=== PATIENT | male | born 1985 | race Caucasian/White ===

== ENCOUNTER → 2017-04-09 | Outpatient (REF) ==
[~2017-04-09] MED LIST: AMIT-106 PO; CLON-298 PO; CLON0.125 PO; LOR5/325 PO; ONDA4TAB PO
== END ==
LOC: AUD 10:00
PROVIDERS: ATTEND Physician Assistant
DX: Z01.10 Encounter for examination of ears and hearing without abnormal findings (principal)
CPT/HCPCS: 92552

== ENCOUNTER → 2018-05-05 | Outpatient (REF) ==
[~2018-05-05] MED LIST changes: -CLON-298 PO; +CLON-331 PO
== END ==
LOC: AUD 09:15
PROVIDERS: ATTEND Physician Assistant
DX: Z01.12 Encounter for hearing conservation and treatment (principal)
CPT/HCPCS: 92552

== ENCOUNTER 2018-06-24 16:01 | Emergency (ER) | payer BC ==
[2018-06-24] MEDS ORDERED: ELUX100T (16:15)
[2018-06-24] MEDS ORDERED: BUPR-474 PO (16:15)
[2018-06-24] MEDS ORDERED: QUET100T29 PO (16:15)
[2018-06-24] MEDS ORDERED: SERT-181 PO (16:16)
--- NOTE | 2018-06-24 16:21 | ER Report ---
History and Physical Time Seen By MD: 16:21 Hx. of Stated Complaint: left sided back pain that started around 7am, pain began to radiate to hip/ abdomen. pt had one episode of emesis. HPI/ROS CHIEF COMPLAINT: Flank pain HISTORY OF PRESENT ILLNESS: This is a 33-year-old male who presents to emergency department for left flank pain. Patient states that this morning around 7:30 he developed some left flank pain, continued throughout the day, has localized into the left lower quadrant. States he's had some slight difficulty urinating, no painful urination. No blood. No bowel movement today. He's had some nausea no vo miting. Denies injuries. Denies testicular pain. No chest pain or shortness breath. No rashes. REVIEW OF SYSTEMS: Constitutional: No fever, no chills. Eyes: No discharge. ENT: No sore throat. Cardiovascular: No chest pain, no palpitations. Respiratory: No cough, no shortness of breath. Gastrointestinal: As above. Genitourinary: No hematuria. Musculoskeletal: As above. Skin: No rashes. Neurological: No headache. Allergies: Coded Allergies: No Known Drug Allergies (Unverified , 09/08/15) Home Meds Active Scripts Ondansetron Hcl (ZOFRAN) 4 Mg Tablet, 4 MG PO Q4-6H PRN for prn, #20 TAB [facility] 06/24/18 Tamsulosin Hcl (FLOMAX) 0.4 Mg Cap.er.24h, 0.4 MG PO DAILY for 14 Days, #14 CAP 0 Refills Prov:HAYDE CASTANON [facility] 06/24/18 Reported Medications Sertraline Hcl (SERTRALINE HCL) 100 Mg Tablet, 1 TAB PO QDAY, TAB 06/24/18 Quetiapine Fumarate (SEROQUEL) 100 Mg Tablet, 100 MG PO HS 06/24/18 Eluxadoline (Viberzi) 100 Mg Tablet, 100 MG BID 06/24/18 Bupropion Hcl (WELLBUTRIN XL) 300 Mg Tab.er.24h, 450 MG PO QDAY, TAB 06/24/18 Clonazepam (CLONAZEPAM) 0.5 Mg Tablet, 1 MG PO HS, #12 TAB 09/08/15 Discontinued Reported Medications Amitriptyline Hcl (AMITRIPTYLINE HCL) 25 Mg Tablet, 25 MG PO QHS, #5 TAB 09/08/15 Discontinued Scripts Ondansetron (ZOFRAN ODT) 4 Mg Tab.rapdis, 4 MG PO Q6H for Nausea, #20 TAB.RAYMOND Prov:MOLLY STUBBS DO 09/08/15 Hydrocodone Bit/Acetaminophen (HYDROCODON-ACETAMINOPHEN 5-325) 1 Each Tablet, 1- 2 EACH PO Q6H for PAIN, #30 TAB Prov:MOLLY STUBBS DO 09/08/15 Past Medical/Surgical History The patient has a past medical and surgical history of wisdom teeth extraction, wears glasses and contacts, IBS, depression. Reviewed Nurses Notes: Yes Hx Smoking: No Smoking Status: Former Smoker Hx Substance Use Disorder: No Hx Alcohol Use: No Constitutional Vital Sign - Last 24 Hours 06/24/18 06/24/18 16:10 17:15 Temp 98.7 Pulse 70 79 Resp 16 B/P (MAP) 147/76 174/76 (108) Pulse Ox 94 O2 Delivery Room Air Physical Exam General Appearance: The patient is alert, has no immediate need for airway protection and no signs of toxicity. Eyes: Pupils equal and round no pallor or injection. ENT, Mouth: Mucous membranes are moist. Respiratory: There are no retractions, lungs are clear to auscultation. Cardiovascular: Regular rate and rhythm. No murmurs, clicks or rubs. Gastrointestinal: Abdomen is soft, tenderness to the left lower quadrant, hypoactive bowel sounds, no masses, no abdominal bruits. Neurological: Intact 4. Moving all extremities. Following all commands. No focal neuro deficits. Skin: Warm and dry, no rashes. Musculoskeletal: Neck is supple non tender. Left CVA tenderness. Extremities are nontender, nonswollen and have full range of motion. [ ] DIFFERENTIAL DIAGNOSIS: After history and physical exam differential diagnosis was considered for abdominal pain including but not limited to appendicitis, cholecystitis, renal colic, ureteral calculi, gastritis and urinary tract infection. Medical Decision Making Data Points Result Diagram: 06/24/18 1648 06/24/18 1648 Laboratory Hematology Test 06/24/18 16:18 06/24/18 16:48 Urine Color Yellow Urine Clarity Clear Urine pH 6.0 pH (4.8-9.5) Urine Specific [place] 1.029 Urine Protein Negative mg/dL (NEGATIVE) Urine Glucose (UA) Negative mg/dL (NEGATIVE) Urine Ketones 20 mg/dL (NEGATIVE) Urine Blood Negative (NEGATIVE) Urine Nitrite Negative (NEGATIVE) Urine Bilirubin Negative (NEGATIVE) Urine Urobilinogen 2.0 mg/dL (0.2-1.9) Urine Leukocyte Esterase Negative (NEGATIVE) Urine RBC 1 /HPF (0-2/HPF) Urine WBC <1 /HPF (0-5/HPF) Urine Squamous Epithelial Cells None /LPF (</=FEW) Urine Bacteria Negative /HPF (NONE-FEW) Urine Mucus None /HPF (NONE-FEW) Red Blood Count 5.02 M/uL (4.00-5.60) Mean Corpuscular Volume 91.5 fL (80.0-96.0) Mean Corpuscular Hemoglobin 31.7 pg (26.0-33.0) Mean Corpuscular Hemoglobin Concent 34.6 g/dL (32.0-36.0) Red Cell Distribution Width 13.5 % (11.5-14.5) Mean Platelet Volume 8.5 fL (7.2-11.1) Neutrophils (%) (Auto) 80.3 % (39.4-72.5) Lymphocytes (%) (Auto) 14.5 % (17.6-49.6) Monocytes (%) (Auto) 4.5 % (4.1-12.4) Eosinophils (%) (Auto) 0.3 % (0.4-6.7) Basophils (%) (Auto) 0.4 % (0.3-1.4) Nucleated RBC Relative Count (auto) 0.0 /100WBC Neutrophils # (Auto) 8.3 K/uL (2.0-7.4) Lymphocytes # (Auto) 1.5 K/uL (1.3-3.6) Monocytes # (Auto) 0.5 K/uL (0.3-1.0) Eosinophils # (Auto) 0.0 K/uL (0.0-0.5) Basophils # (Auto) 0.0 K/uL (0.0-0.1) Nucleated RBC Absolute Count (auto) 0.00 K/uL Sodium Level 133 mmol/L (137-145) Potassium Level 4.3 mmol/L (3.5-5.0) Chloride Level 99 mmol/L (98-107) Carbon Dioxide Level 26 mmol/L (22-30) Blood Urea Nitrogen 13 mg/dl (9-21) Creatinine 1.60 mg/dl (0.66-1.25) Glomerular Filtration Rate Calc 50.3 Random Glucose 99 mg/dl (75-110) Calcium Level 9.9 mg/dl (8.4-10.2) Total Bilirubin 0.6 mg/dl (0.2-1.3) Aspartate Amino Transf (AST/SGOT) 25 U/L (0-35) Alanine Aminotransferase (ALT/SGPT) 28 U/L (0-56) Alkaline Phosphatase 64 U/L (0-126) Total Protein 7.9 g/dl (6.3-8.2) Albumin 4.7 g/dl (3.5-5.0) Chemistry Test 06/24/18 16:18 06/24/18 16:48 Urine Color Yellow Urine Clarity Clear Urine pH 6.0 pH (4.8-9.5) Urine Specific [place] 1.029 Urine Protein Negative mg/dL (NEGATIVE) Urine Glucose (UA) Negative mg/dL (NEGATIVE) Urine Ketones 20 mg/dL (NEGATIVE) Urine Blood Negative (NEGATIVE) Urine Nitrite Negative (NEGATIVE) Urine Bilirubin Negative (NEGATIVE) Urine Urobilinogen 2.0 mg/dL (0.2-1.9) Urine Leukocyte Esterase Negative (NEGATIVE) Urine RBC 1 /HPF (0-2/HPF) Urine WBC <1 /HPF (0-5/HPF) Urine Squamous Epithelial Cells None /LPF (</=FEW) Urine Bacteria Negative /HPF (NONE-FEW) Urine Mucus None /HPF (NONE-FEW) White Blood Count 10.3 k/uL (4.5-11.0) Red Blood Count 5.02 M/uL (4.00-5.60) Hemoglobin 15.9 g/dL (14.0-18.0) Hematocrit 46.0 % (42.0-52.0) Mean Corpuscular Volume 91.5 fL (80.0-96.0) Mean Corpuscular Hemoglobin 31.7 pg (26.0-33.0) Mean Corpuscular Hemoglobin Concent 34.6 g/dL (32.0-36.0) Red Cell Distribution Width 13.5 % (11.5-14.5) Platelet Count 222 K/uL (150-450) Mean Platelet Volume 8.5 fL (7.2-11.1) Neutrophils (%) (Auto) 80.3 % (39.4-72.5) Lymphocytes (%) (Auto) 14.5 % (17.6-49.6) Monocytes (%) (Auto) 4.5 % (4.1-12.4) Eosinophils (%) (Auto) 0.3 % (0.4-6.7) Basophils (%) (Auto) 0.4 % (0.3-1.4) Nucleated RBC Relative Count (auto) 0.0 /100WBC Neutrophils # (Auto) 8.3 K/uL (2.0-7.4) Lymphocytes # (Auto) 1.5 K/uL (1.3-3.6) Monocytes # (Auto) 0.5 K/uL (0.3-1.0) Eosinophils # (Auto) 0.0 K/uL (0.0-0.5) Basophils # (Auto) 0.0 K/uL (0.0-0.1) Nucleated RBC Absolute Count (auto) 0.00 K/uL Glomerular Filtration Rate Calc 50.3 Calcium Level 9.9 mg/dl (8.4-10.2) Total Bilirubin 0.6 mg/dl (0.2-1.3) Aspartate Amino Transf (AST/SGOT) 25 U/L (0-35) Alanine Aminotransferase (ALT/SGPT) 28 U/L (0-56) Alkaline Phosphatase 64 U/L (0-126) Total Protein 7.9 g/dl (6.3-8.2) Albumin 4.7 g/dl (3.5-5.0) Urinalysis Test 06/24/18 16:18 Urine Color Yellow Urine Clarity Clear Urine pH 6.0 pH (4.8-9.5) Urine Specific [place] 1.029 Urine Protein Negative mg/dL (NEGATIVE) Urine Glucose (UA) Negative mg/dL (NEGATIVE) Urine Ketones 20 mg/dL (NEGATIVE) Urine Blood Negative (NEGATIVE) Urine Nitrite Negative (NEGATIVE) Urine Bilirubin Negative (NEGATIVE) Urine Urobilinogen 2.0 mg/dL (0.2-1.9) Urine Leukocyte Esterase Negative (NEGATIVE) Urine RBC 1 /HPF (0-2/HPF) Urine WBC <1 /HPF (0-5/HPF) Urine Squamous Epithelial Cells None /LPF (</=FEW) Urine Bacteria Negative /HPF (NONE-FEW) Urine Mucus None /HPF (NONE-FEW) EKG/Imaging Imaging PATIENT NAME: Jd Britton : 1985 MR: [id number] V: [id number] EXAM DATE: ORDERING PHYSICIAN: HAYDE CASTANON TECHNOLOGIST: Location: [facility] Patient: Jd Britton : 1985 Visit/Account:[id number] Date of Sevice: 06/24/2018 COMPUTED TOMOGRAPHY OF THE Abdomen and Pelvis without CONTRAST INDICATION: Abdominal and back pain. Evaluate for stones. TECHNIQUE: Contiguous axial 3.[address] images were obtained through the abdomen and pelvis without contrast. Coronal and sagittal reformatted images were sub mitted. COMPARISON: None. FINDINGS: Lung bases: Trace atelectasis at the lung bases Liver and hepatic vasculature: Limited liver parenchymal evaluation without contrast. No apparent focal lesion. Gallbladder and bile ducts: Normal Spleen: Normal Pancreas: Normal Adrenals: Normal Kidneys, ureters and bladder: Mild left hydronephrosis and hydroureter with a 3 mm calculus in the downstream left ureter near the UVJ. Decompressed bladder. Minimal left perinephric stranding. Retroperitoneum and aorta: Normal GI tract, mesentery and peritoneum: Normal appendix. No bowel obstruction. No findings of diverticulitis. Prostate: Unremarkable Bones and soft tissues: No acute osseous abnormality. IMPRESSION: 3 mm calculus in the downstream left ureter near the UVJ results in mild hydronephrosis and hydroureter. One of the following dose optimization techniques was utilized in the performance of this exam: Automated exposure control; adjustment of the mA and/or kV according to the patient's size; or use of an iterative reconstruction technique. Specific details can be referenced in the facility's radiology CT exam operational policy. Report Dictated By: Inez Oneill MD at 06/24/2018 5:29 PM Report E-Signed By: Inez Oneill MD at 06/24/2018 5:36 PM WSN:[id number] ED Course/Re-evaluation Clinical Indication for ER IV: Hydration, IV Access ED Course The patient was admitted to room. A history and physical were obtained. Differential diagnoses were considered. An IV was started. A CBC, CMP and UA were collected.CBC unremarkable, chemistry showing sodium 133, creatinine 1.60, likely from hydronephrosis, and dehydration, patient's urine showing specific gravity of 1.029, ketonuria. CT of the abdomen pelvis showing a 3 mm stone nonobstructive, at the UVJ. Patient was given 4 mg IV Zofran, 4 mg IV morphine 2, 30 mg IV Toradol. Patient had relief with the medications. I did review the results with the patient. I did recommend following up with Dr. Estes tomorrow. He was started on Flomax, instructed to take ibuprofen or Tylenol. He was also sent home with a urine strainer had no other questions or concerns at this time and discharged home. Decision to Disposition Date: June 24, 2018 Decision to Disposition Time: 17:54 Depart Departure Latest Vital Signs Vital Signs Date Time Temp Pulse Resp B/P (MAP) Pulse Ox O2 Delivery O2 Flow Rate FiO2 06/24/18 17:15 79 174/76 (108) 06/24/18 16:10 98.7 16 94 Room Air Impression: Primary Impression: Left ureteral calculus Condition: Improved Disposition: HOME OR SELF-CARE Referrals: RANDY DAWN (PCP) BAYLEE ESTES MD 1 Day New Scripts Ondansetron Hcl (ZOFRAN) 4 Mg Tablet 4 MG PO Q4-6H PRN for prn, #20 TAB Prov: HAYDE CASTANON 06/24/18 Tamsulosin Hcl (FLOMAX) 0.4 Mg Cap.er.24h 0.4 MG PO DAILY for 14 Days, #14 CAP 0 Refills Prov: HAYDE CASTANON-LUC[facility]A 06/24/18 Patient Instructions: Kidney Stones (ED) Additional Instructions: You do have a non obstructing kidney stone on the left, near the bladder. Take 800mg of ibuprofen every 8 hours as needed. Take 500-1000mg of Tylenol as needed for pain. Take the flomax daily as directed. Please call Dr. Estes's office tomorrow. Get plenty of rest. Return to the ED for any other concerns or worsening symptoms. HAYDE CASTANON- June 24, 2018 16:21
[2018-06-24] MEDS ORDERED: NS(*) 0.9% 1000 ML BAG 1,000 ML IV ONE (16:36)
[2018-06-24] MEDS ORDERED: MORPHINE 4 MG/ML SDV IVP ONE ×2 (16:40→17:45)
[2018-06-24] MEDS ORDERED: ONDANSETRON 4 MG/2 ML VIAL IVP ONE (16:40)
[2018-06-24 17:07] LABS: PLATELET COUNT, AUTOMATED 222 K/uL (150-450)
[2018-06-24 17:15] VITALS: BP 174/76
--- NOTE | 2018-06-24 17:41 | RADIOLOGY IMAGING REPORT ---
FACILITY: [facility] [place] PATIENT NAME: Jd Britton : 1985 MR: [id number] V: [id number] EXAM DATE: ORDERING PHYSICIAN: HAYDE CASTANON TECHNOLOGIST: Location: [facility] Patient: Jd Britton : 1985 Visit/Account:[id number] Date of Sevice: 06/24/2018 COMPUTED TOMOGRAPHY OF THE Abdomen and Pelvis without CONTRAST INDICATION: Abdominal and back pain. Evaluate for stones. TECHNIQUE: Contiguous axial 3.[address] images were obtained through the abdomen and pelvis without co ntrast. Coronal and sagittal reformatted images were submitted. COMPARISON: None. FINDINGS: Lung bases: Trace atelectasis at the lung bases Liver and hepatic vasculature: Limited liver parenchymal evaluation without contrast. No apparent fo jen lesion. Gallbladder and bile ducts: Normal Spleen: Normal Pancreas: Normal Adrenals: Normal Kidneys, ureters and bladder: Mild left hydronephrosis and hydroureter with a 3 mm calculus in the d ownstream left ureter near the UVJ. Decompressed bladder. Minimal left perinephric stranding. Retroperitoneum and aorta: Normal GI tract, mesentery and peritoneum: Normal appendix. No bowel obstruction. No findings of diverticuli tis. Prostate: Unremarkable Bones and soft tissues: No acute osseous abnormality. IMPRESSION: 3 mm calculus in the downstream left ureter near the UVJ results in mild hydronephrosis and hydrouret er. One of the following dose optimization techniques was utilized in the performance of this exam: Autom ated exposure control; adjustment of the mA and/or kV according to the patient's size; or use of an i terative reconstruction technique. Specific details can be referenced in the facility's radiology C T exam operational policy. Report Dictated By: Inez Oneill MD at 06/24/2018 5:29 PM Report E-Signed By: Inez Oneill MD at 06/24/2018 5:36 PM WSN:[id number]
[2018-06-24] MEDS ORDERED: KETOROLAC 30 MG/ML VIAL IVP ONE (17:50)
[2018-06-24] MEDS ORDERED: TAMS0.4C25 PO (17:56)
[2018-06-24] MEDS ORDERED: ONDA4TAB97 PO (18:14)
== END 2018-06-24 18:20 | disposition home or self-care (01) ==
LOC: ER 16:10
DX: N13.2 Hydronephrosis with renal and ureteral calculous obstruction (principal); E86.0 Dehydration
CPT/HCPCS: 74176; 81001; 85025; 96361; 96374; 96375; 96376; 99284; J1885; J2270; J2405; J7030; 82040; 82247; 82310; 82374; 82435; 82565; 82947; 84075; 84132; 84155; 84295; 84450; 84460; 84520